=== PATIENT | male | born 1995 | race Two or more races ===

== ENCOUNTER 2022-11-21 19:14 | Emergency (ER) | payer MEDICAID ==
[~2022-11-21] VITALS: Ht 167.6 cm; Wt 68.0 kg
[2022-11-21 19:50] VITALS: TEMP 100
[2022-11-21 21:45] VITALS: BP 110/67; PULSE 86; RESP 16
== END 2022-11-21 22:00 | disposition home or self-care (01) ==
LOC: EMS 19:18
DX: L05.01 Pilonidal cyst with abscess (principal)
CPT/HCPCS: 99281; Z7502

== ENCOUNTER 2022-11-23 11:12 | Emergency (ER) | payer MEDICAID ==
[~2022-11-23] VITALS: Ht 167.6 cm; Wt 68.2 kg
[2022-11-23 11:27] VITALS: TEMP 98.6
[2022-11-23 14:30] VITALS: BP 114/99; PULSE 88; RESP 18
[2022-11-23] MEDS ORDERED: BACITRACIN 0.9 GM PACKET OINTMENT TP ONE (15:00)
== END 2022-11-23 15:44 | disposition home or self-care (01) ==
LOC: EMS 11:34
DX: L05.01 Pilonidal cyst with abscess (principal)
CPT/HCPCS: 99282; Z7502; Z7610